=== PATIENT | female | born 1995 | race Caucasian/White ===

== ENCOUNTER 2016-11-01 10:15 | Emergency (ER) | payer OTHER ==
[~2016-11-01] VITALS: Ht 157.5 cm; Wt 65.0 kg
[~2016-11-01 10:15] MED LIST: ACET500C5 PO; AMO500 PO; OMEP20CA9 PO; ONDA4TAB35 PO; RANI150T9 PO
[2016-11-01 10:19] VITALS: Ht 157.5 cm; Wt 65.0 kg
[2016-11-01] MEDS ORDERED: BENZ100C70 PO (11:04)
[2016-11-01] MEDS ORDERED: OSLT75C PO (11:04)
[2016-11-01] MEDS ORDERED: ONDA4TAB14 PO (11:04)
--- NOTE | 2016-11-01 11:12 | ERD ---
ER Documentation Chief Complaint Date/Time DATE: 11/01/16 TIME: 11:08 Chief Complaint flu since thursday HPI Patient is a 21-year-old female who is otherwise healthy complaining of cough, sore throat, earache, nausea, vomiting and generalized body aches and pains for the past 3 days. She admits to fever at home but she took Tylenol and no longer has fever. She has tried [id number] medications which have not helped. ROS All systems reviewed and are negative except as per history of present illness. Medications Home Meds Active Scripts Ondansetron (Ondansetron Odt) 4 Mg Tab.rapdis, 4 MG PO Q6H Y for NAUSEA AND/OR VOMITING, #20 TAB Prov:WIL IRVIN PA-C 11/01/16 Benzonatate* (Tessalon Perle*) 100 Mg Capsule, 100 MG PO Q8H Y for COUGH for 5 Days, CAP Prov:WIL IRVIN PA-C 11/01/16 Oseltamivir Phosphate* (Tamiflu*) 75 Mg Capsule, 75 MG PO BID for 5 Days, CAP Prov:WIL IRVIN PA-C 11/01/16 Acetaminophen* (Tylophen*) 500 Mg Capsule, 1 CAP PO Q6H Y for PAIN AND OR ELEVATED TEMP, #20 CAP Prov:ALEX DAVIES NP 03/06/16 Ranitidine Hcl* (Zantac*) 150 Mg Tablet, 150 MG PO BID Y for EPIGASTRIC PAIN, # 30 TAB Prov:ALEX DAVIES NP 03/06/16 Omeprazole* (Prilosec*) 20 Mg Capsule.dr, 20 MG PO DAILY for 14 Days, CAP Prov:ALEX DAVIES NP 03/06/16 Ondansetron Hcl* (Zofran* ODT) 4 mg -ODT Tab.disper, 4 MG PO Q6 Y for NAUSEA AND /OR VOMITING, #10 TAB Prov:MABEL LIN NP 11/24/15 Ranitidine Hcl* (Zantac*) 150 Mg Tablet, 150 MG PO BID for EPIGASTRIC PAIN, #14 TAB Prov:MABEL LIN NP 11/24/15 Amoxicillin* (Amoxicillin*) 500 Mg Cap, 500 MG PO TID for 7 Days, CAP Prov:JUDIE FUNES DO 10/26/15 Allergies Allergies: Coded Allergies: No Known Drug Allergies (Verified Allergy, Unknown, 10/26/15) PMhx/Soc History of Surgery: No Anesthesia Reaction: No Hx Neurological Disorder: No Hx Respiratory Disorders: No Hx Cardiac Disorders: No Hx Psychiatric Problems: No Hx Miscellaneous Medical Probl: Yes (had problems during her ) Hx Alcohol Use: No Hx Substance Use: No Hx Tobacco Use: No FmHx Family History: No diabetes Physical Exam Vitals Vital Signs Date Time Temp Pulse Resp B/P Pulse Ox O2 Delivery O2 Flow Rate FiO2 11/01/16 10:19 100.0 99 20 116/78 99 Physical Exam General: well developed, well nourished, alert, nontoxic, no distress Head: normocephalic, atraumatic Neck: Supple, nontender, no lymphadenopathy, no midline tenderness Ears: no tenderness over mastoids bilaterally, TMs nonerythematous, no exudates in canal Oropharynx: no tonsilar erythema or edema, uvula midline, no exudates, no kissing tonsils, no drooling Respiratory: Clear to auscaultation bilaterally, speaks in full sentences, no use of accesory muscles or labored breathing, no rales, ronchi, or wheezing Cardiovascular: RRR, No murmurs GI: soft, non tender, non distended, negative murphys sign, negative mcburneys point tenderness, no cva tenderness bilaterally, no rebound or guarding Back: no midline tenderness, no step offs or bony abnormalities, sensation to light touch in tact rapid alternating movements wnl, romberg and pronator drift wnl Procedures/MDM 21-year-old female presents with flulike symptoms. Today's a third day. Low- grade temperature 100.0. Her examination is normal she is well-appearing in no distress. Her lungs are clear. Her GI examination is benign. She is borderline timewise of tamiflu effectivness, however i will still treat her with it as well as Sanam and Marcelle Cash to help her with a cough.Recommended this patient follow up with her primary care doctor within 48 hours or return to the emergency room for any worsening of symptoms. However this time I do believe there is suitable for outpatient management. I answered all their questions and they agreed with the plan and were discharged home. Departure Diagnosis: Primary Impression: Influenza-like symptoms Condition: Stable Patient Instructions: Influenza (Adult) Additional Instructions: Call your primary care doctor TOMORROW for an appointment during the next 1-2 days.See the doctor sooner or return here if your condition worsens before your appointment time. WIL IRVIN PA-C Nov 01, 2016 11:12
[2016-11-01 11:56] VITALS: BP 126/74; PULSE 76; RESP 20; TEMP 99.9
== END 2016-11-01 11:56 | disposition home or self-care (01) ==
LOC: FTE 10:15
DX: J02.9 Acute pharyngitis, unspecified (principal); R11.2 Nausea with vomiting, unspecified; M79.1 Myalgia; H92.09 Otalgia, unspecified ear
CPT/HCPCS: 99284

== ENCOUNTER 2017-08-01 22:37 | Emergency (ER) | payer OTHER ==
[~2017-08-01] VITALS: Ht 162.6 cm; Wt 66.5 kg
[~2017-08-01 22:37] MED LIST changes: -AMO500 PO; +AMOX500C2 PO; +BENZ100C70 PO; +ONDA4TAB14 PO; +OSLT75C PO
[2017-08-01 22:38] VITALS: Ht 162.6 cm; Wt 66.5 kg
[2017-08-01] MEDS ORDERED: ONDANSETRON 4 MG INJ IV STA (22:56)
[2017-08-01] MEDS ORDERED: FAMOTIDINE 20 MG INJ IV STA (22:56)
[2017-08-01] MEDS ORDERED: SOD CHLORIDE 0.9% 1,000 ML IV STA (22:56)
[2017-08-01] MEDS ORDERED: morphine 4 MG/ML VIAL IV STA (22:56)
[2017-08-01 23:49] LABS: ADD UMIC YES; UR ASCORBIC ACID NEGATIVE (NEGATIVE); UR BACTERIA MANY /HPF (NONE SEEN); UR BILIRUBIN (Dip) NEGATIVE (NEGATIVE); UR BLOOD (Dip) NEGATIVE (NEGATIVE); UR CLARITY CLOUDY (CLEAR); UR COLOR YELLOW (YELLOW); UR GLUCOSE (Dip) NEGATIVE (NEGATIVE); UR KETONES (Dip) NEGATIVE (NEGATIVE); UR LEUKOCYTE ESTERASE (Dip) 1+ Leu/ul (NEGATIVE); UR MUCUS FEW /HPF (NONE SEEN); UR NITRITE (Dip) POSITIVE (NEGATIVE); UR RBC 0 /HPF (0-5); UR SQUAMOUS EPITHELIAL CELL FEW /HPF (FEW); UR TOTAL PROTEIN (Dip) NEGATIVE (NEGATIVE); UR UROBILINOGEN (Dip) NEGATIVE (NEGATIVE)
--- NOTE | 2017-08-01 23:52 | ERD ---
ER Documentation Chief Complaint Date/Time DATE: 08/01/17 TIME: 23:49 Chief Complaint vomiting w/ headache since this morning HPI This is a 22-year-old female presenting to emergency department with abdominal pain, vomiting and headache 2 days. Patient states she feels like it is her "gallbladder pain." Patient states she has a history of gallstones. Patient had 4 episodes of nonbloody nonbilious emesis today. No diarrhea. No lower abdominal pain. No dysuria or hematuria. No urinary frequency or urgency. Patient states she has similar pain intermittently in the last couple of months and usually takes Prilosec and apple juice with relief of pain. Patient took Prilosec earlier today without relief of symptoms. Patient's last menstrual period about 5 weeks ago. ROS All systems reviewed and are negative except as per history of present illness. Medications Home Meds Active Scripts Ciprofloxacin Hcl* (Ciprofloxacin Hcl*) 500 Mg Tablet, 500 MG PO BID for 7 Days , TAB Prov:CHELITA ACEVEDO PA-C 08/02/17 Hydrocodone/Acetaminophen ([place] 5-325 Tablet) 1 Each Tablet, 1 TAB PO Q6H Y for PAIN, #7 TAB Prov:CHELITA ACEVEDO PA-C 08/02/17 Ondansetron (Ondansetron Odt) 4 Mg Tab.rapdis, 4 MG PO Q6H Y for NAUSEA AND/OR VOMITING, #20 TAB Prov:WIL IRVIN PA-C 11/01/16 Benzonatate* (Tessalon Perle*) 100 Mg Capsule, 100 MG PO Q8H Y for COUGH for 5 Days, CAP Prov:WIL IRVIN PA-C 11/01/16 Oseltamivir Phosphate* (Tamiflu*) 75 Mg Capsule, 75 MG PO BID for 5 Days, CAP Prov:WIL IRVIN PA-C 11/01/16 Acetaminophen* (Tylophen*) 500 Mg Capsule, 1 CAP PO Q6H Y for PAIN AND OR ELEVATED TEMP, #20 CAP Prov:ALEX DAVIES NP 03/06/16 Ranitidine Hcl* (Zantac*) 150 Mg Tablet, 150 MG PO BID Y for EPIGASTRIC PAIN, # 30 TAB Prov:ALEX DAVIES NP 03/06/16 Omeprazole* (Prilosec*) 20 Mg Capsule.dr, 20 MG PO DAILY for 14 Days, CAP Prov:ALEX DAVIES. CARBON CLEANER 03/06/16 Ondansetron Hcl* (Zofran* ODT) 4 mg -ODT Tab.disper, 4 MG PO Q6 Y for NAUSEA AND /OR VOMITING, #10 TAB Prov:LINMABEL I. CARB[employer] CLEANER 11/24/15 Ranitidine Hcl* (Zantac*) 150 Mg Tablet, 150 MG PO BID for EPIGASTRIC PAIN, #14 TAB Prov:LINMABEL I. CARB[employer] CLEANER 11/24/15 Amoxicillin* (Amoxicillin*) 500 Mg Cap, 500 MG PO TID for 7 Days, CAP Prov:MARINAJMOODY DO 10/26/15 Allergies Allergies: Coded Allergies: No Known Drug Allergies (Verified Allergy, Unknown, 10/26/15) PMhx/Soc Medical and Surgical Hx: pt denies Surgical Hx History of Surgery: No Anesthesia Reaction: No Hx Neurological Disorder: No Hx Respiratory Disorders: No Hx Cardiac Disorders: No Hx Psychiatric Problems: No Hx Miscellaneous Medical Probl: Yes (Gallstones) Hx Alcohol Use: No Hx Substance Use: No Hx Tobacco Use: No Smoking Status: Never smoker Physical Exam Vitals Vital Signs Date Time Temp Pulse Resp B/P Pulse Ox O2 Delivery O2 Flow Rate FiO2 08/02/17 03:21 98.6 68 16 122/68 100 08/01/17 22:38 98.6 92 20 130/83 100 Physical Exam Const: No acute distress, alert Head: Atraumatic Eyes: Normal Conjunctiva ENT: Normal External Ears, Nose and Mouth. Neck: Full range of motion..~ No meningismus. Resp: Clear to auscultation bilaterally Cardio: Regular rate and rhythm, no murmurs Abd: Soft, non distended. Normal bowel sounds. Negative McBurney point tenderness. Negative Holm sign. Tenderness to right upper and lower quadrant. No rebound tenderness. Skin: No petechiae or rashes Back: No midline or flank tenderness Ext: No cyanosis, or edema Neur: Awake and alert Psych: Normal Mood and Affect Result Diagram: 08/01/17 7507 08/01/17 5487 Results 24 hrs Laboratory Tests Test 08/01/17 23:18 08/01/17 23:53 Urine Color YELLOW Urine Clarity CLOUDY Urine pH 7.0 Urine Specific Wallace 1.010 Urine Ketones NEGATIVEmg/dL Urine Nitrite POSITIVEmg/dL Urine Bilirubin NEGATIVEmg/dL Urine Urobilinogen NEGATIVEmg/dL Urine Leukocyte Esterase 1+Mare/ul Urine Microscopic RBC 0/HPF Urine Microscopic WBC 10/HPF Urine Squamous Epithelial Cells FEW/HPF Urine Bacteria MANY/HPF Urine Mucus FEW/HPF Urine Hemoglobin NEGATIVEmg/dL Urine Glucose NEGATIVEmg/dL Urine Total Protein NEGATIVEmg/dl White Blood Count 8.910^3/ul Red Blood Count 4.3710^6/ul Hemoglobin 13.4g/dl Hematocrit 38.9% Mean Corpuscular Volume 89.0fl Mean Corpuscular Hemoglobin 30.7pg Mean Corpuscular Hemoglobin Concent 34.4g/dl Red Cell Distribution Width 11.9% Platelet Count 24189^3/UL Mean Platelet Volume 9.5fl Neutrophils % 59.2% Lymphocytes % 30.1% Monocytes % 6.6% Eosinophils % 3.5% Basophils % 0.4% Nucleated Red Blood Cells % 0.0/100WBC Neutrophils # 5.310^3/ul Lymphocytes # 2.710^3/ul Monocytes # 0.610^3/ul Eosinophils # 0.310^3/ul Basophils # 0.010^3/ul Nucleated Red Blood Cells # 0.010^3/ul Sodium Level 143mmol/L Potassium Level 3.6mmol/L Chloride Level 101mmol/L Carbon Dioxide Level 29mmol/L Anion Gap 17 Blood Urea Nitrogen 8mg/dl Creatinine 0.70mg/dl Glucose Level 84mg/dl Calcium Level 9.8mg/dl Total Bilirubin 0.2mg/dl Direct Bilirubin 0.00mg/dl Indirect Bilirubin 0.2mg/dl Aspartate Amino Transf (AST/SGOT) 41IU/L Alanine Aminotransferase (ALT/SGPT) 85IU/L Alkaline Phosphatase 99IU/L Total Protein 7.9g/dl Albumin 4.5g/dl Globulin 3.40g/dl Albumin/Globulin Ratio 1.32 Lipase 108U/L Current Medications Medications (Trade) Dose Ordered Sig/Jacklyn Route PRN Reason Start Time Stop Time Status Last Admin Dose Admin Sodium Chloride (NS) 1,000 ml @ 1,000 mls/hr Q1H STAT IV 08/01/17 22:56 08/01/17 23:55 DC 08/01/17 22:56 Morphine Sulfate (morphine) 4 mg ONCE STAT IV 08/01/17 22:56 08/01/17 22:58 DC 08/01/17 23:56 Ondansetron HCl (Zofran Inj) 4 mg ONCE STAT IV 08/01/17 22:56 08/01/17 22:58 DC 08/01/17 22:56 Famotidine (Pepcid Iv) 20 mg ONCE STAT IV 08/01/17 22:56 08/01/17 22:58 DC 08/01/17 22:56 Morphine Sulfate (morphine) 2 mg ONCE ONCE IV 08/02/17 01:30 08/02/17 01:31 DC 08/02/17 01:28 Procedures/MDM MDM: This is a 22-year-old female presenting to emerge department with right upper quadrant abdominal pain, vomiting and headache 2 days. Patient is afebrile upon arrival to ED and vital signs are stable. Patient is having significant right upper quadrant abdominal pain rating pain 8/10 and states pain feels sharp. Pain is radiating to right flank. Labs and urine ordered. A bladder ultrasound and CT abdomen and pelvis ordered. IV access obtained and patient given 1 L IV fluid bolus. Patient also given morphine 4 mg IV, Pepcid 20 mg IV and Zofran 4 mg IV. Patient signed out to Penelope Acevedo pending labs, urine, ultrasound and CT results. Departure Diagnosis: Primary Impression: Cholelithiasis Condition: Stable NARESH GROVES NP Aug 01, 2017 23:52
[2017-08-02 00:17] LABS: BASOPHILS % 0.4 % (0.0-2.0); EOSINOPHILS # 0.3 10^3/ul (0.0-0.5); EOSINOPHILS % 3.5 % (0.0-7.0); HEMATOCRIT 38.9 % (37.0-47.0); HEMOGLOBIN 13.4 g/dl (12.0-16.0); LYMPHOCYTES # 2.7 10^3/ul (0.8-2.9); LYMPHOCYTES % 30.1 % (15.0-51.0); MEAN CORPUSCULAR HEMOGLOBIN 30.7 pg (29.0-33.0); MEAN CORPUSCULAR HGB CONC 34.4 g/dl (32.0-37.0); MEAN PLATELET VOLUME 9.5 fl (7.4-10.4); MONOCYTE # 0.6 10^3/ul (0.3-0.9); MONOCYTES % 6.6 % (0.0-11.0); NEUTROPHIL # 5.3 10^3/ul (1.6-7.5); NEUTROPHILS % 59.2 % (39.0-77.0); PLATELET COUNT 370 10^3/UL (140-415); RED BLOOD COUNT 4.37 10^6/ul (4.20-5.40); RED CELL DISTRIBUTION WIDTH 11.9 % (11.5-14.5); WHITE BLOOD COUNT 8.9 10^3/ul (4.8-10.8)
[2017-08-02 00:36] LABS: ALBUMIN 4.5 g/dl (3.3-4.9); ALBUMIN/GLOBULIN RATIO 1.32; BILIRUBIN,INDIRECT 0.2 mg/dl (0-1.1); BILIRUBIN,TOTAL 0.2 mg/dl (0.2-1.3); CALCIUM 9.8 mg/dl (8.4-10.2); CREATININE 0.7 mg/dl (0.44-1.00); POTASSIUM 3.6 mmol/L (3.5-5.1); TOTAL PROTEIN 7.9 g/dl (6.1-8.1)
--- NOTE | 2017-08-02 01:18 | RADRPT ---
PROCEDURE: CT ABDOMEN AND PELVIS WITHOUT CONTRAST CLINICAL INDICATION: 22 years of age, female . Abdominal pain. TECHNIQUE: CT of the abdomen and pelvis was performed without intravenous contrast. Oral contrast wa s not administered prior to the examination. Coronal and sagittal reformatted images were obtained from the axial source images. Images were revi ewed on a high-resolution PACS workstation. Dose information: Based on a 32 cm phantom, the estimated radiation dose (CTDIvol mGy) for each seri es in this exam is 7.5. The estimated cumulative dose (DLP mGy-cm) is 425. One or more of the following dose reduction techniques were used: - Automated exposure control. - Adjustment of the mA and/or kV according to patient size. - Use of iterative reconstruction technique. COMPARISON: Right upper quadrant ultrasound from the same day FINDINGS: In the absence of intravenous contrast, the study constitutes a limited assessment of the solid orga ns, bowel and vessels. LUNG BASES: Normal noncontrast appearance. ABDOMEN/PELVIS: Liver: Severe hepatic steatosis. Liver is normal size and measures 16.7 cm in length. Gallbladder: There are multiple rim calcified stones occupying the gallbladder lumen. Individual sto calvin measure up to 1.9 cm. Negative for abnormal gallbladder wall thickening. Negative for edema in t he pericholecystic fat. Bile ducts: No intrahepatic or extrahepatic biliary duct dilatation. Spleen: Normal noncontrast appearance. Pancreas: Normal noncontrast appearance. Adrenal glands: Normal noncontrast appearance. Kidneys and ureters: Punctate 0.1 cm calculus lower pole right kidney. Negative for ureteral calculi or hydronephrosis. Kidneys are normal size. Aorta and IVC: Normal noncontrast appearance. Lymph nodes: Small lymph nodes in gastrohepatic ligament and ayana hepatis are likely reactive. Gastrointestinal tract: Normal noncontrast appearance. Appendix: Normal Bladder: Normal noncontrast appearance. Pelvic Organs: The uterus and adnexa are unremarkable. Peritoneal cavity: No free fluid or free intraperitoneal air. Abdominal wall: Normal noncontrast appearance. BONES: Musculoskeletal: No suspicious bone lesions. IMPRESSION: 1. Severe hepatic steatosis without hepatomegaly. Recommend correlation with liver tests to evaluate for potential steatohepatitis. 2. Cholelithiasis without evidence of acute cholecystitis or biliary obstruction. RPTAT: HCTS Angela Gonzalez, Physician Date Time Electronically viewed and signed by Angela Gonzalez, Physician on 08/02/2017 01:18 CS/
[2017-08-02] MEDS ORDERED: morphine 2 MG INJ IV ONE (01:30)
[2017-08-02] MEDS ORDERED: CIPR500T4 PO (02:35)
[2017-08-02] MEDS ORDERED: HYDR-906 PO (02:35)
[2017-08-02 03:21] VITALS: BP 122/68; PULSE 68; RESP 16; TEMP 98.6
[2017-08-03] MEDS ORDERED: ONDA4TAB8 PO (03:26)
[2017-08-03] MEDS ORDERED: TRAM50TA2 PO (03:26)
[2017-08-03] MEDS ORDERED: NAPR-688 PO (03:26)
== END 2017-08-02 03:23 | disposition home or self-care (01) ==
LOC: FTE 22:37
DX: K80.20 Calculus of gallbladder without cholecystitis without obstruction (principal)
CPT/HCPCS: 36415; 74176; 76705; 80053; 81001; 83690; 85025; 96374; 96375; 96376; J2270; J2405; J7030; Z7502; Z7610

== ENCOUNTER 2017-08-02 23:38 | Emergency (ER) | payer OTHER ==
[~2017-08-02] VITALS: Ht 165.1 cm; Wt 66.0 kg
[~2017-08-02 23:38] MED LIST changes: +CIPR500T4 PO; +HYDR-906 PO
[2017-08-02 23:42] VITALS: Ht 165.1 cm; Wt 66.0 kg
[2017-08-03] MEDS ORDERED: KETOROLAC 60 MG INJ IM STA (00:30)
[2017-08-03] MEDS ORDERED: ONDANSETRON 4 MG INJ IV STA (00:46)
[2017-08-03] MEDS ORDERED: ONDANSETRON 4 MG INJ IM STA (00:48)
--- NOTE | 2017-08-03 00:48 | ERD ---
ER Documentation Chief Complaint Date/Time DATE: 08/03/17 TIME: 00:43 Chief Complaint abd pain x4 days. Seen in ED yesterday dx w/gallstones. "Meds not working" HPI 22-year-old female presents for the same right upper quadrant pain rating to the back described as a pain like pain sensation is at the same pain that she had yesterday. Yesterday she was discharged discharge with ciprofloxacin and Revillo. She took a Revillo this evening and it did not take away the pain. She also has some nausea. ROS All systems reviewed and are negative except as per history of present illness. Medications Home Meds Active Scripts Ondansetron Hcl* (Zofran*) 4 Mg Tablet, 4 MG PO Q6H for NAUSEA AND/OR VOMITING, #30 TAB Prov:KAILA LEE DO 08/03/17 Naproxen* (Naproxen*) 500 Mg Tablet, 500 MG PO BID Y for PAIN, #20 TAB Prov:KAILA LEE DO 08/03/17 Tramadol HCl (Tramadol HCl) 50 Mg Tablet, 50 MG PO Q4 Y for PAIN, #20 TAB Prov:JESUSKAILA DO 08/03/17 Ciprofloxacin Hcl* (Ciprofloxacin Hcl*) 500 Mg Tablet, 500 MG PO BID for 7 Days , TAB Prov:CHELITA ACEVEDO PA-C 08/02/17 Hydrocodone/Acetaminophen ([place] 5-325 Tablet) 1 Each Tablet, 1 TAB PO Q6H Y for PAIN, #7 TAB Prov:CHELITA ACEVEDO PA-C 08/02/17 Ondansetron (Ondansetron Odt) 4 Mg Tab.rapdis, 4 MG PO Q6H Y for NAUSEA AND/OR VOMITING, #20 TAB Prov:WIL IRVIN PA-C 11/01/16 Benzonatate* (Tessalon Perle*) 100 Mg Capsule, 100 MG PO Q8H Y for COUGH for 5 Days, CAP Prov:WIL IRVIN PA-C 11/01/16 Oseltamivir Phosphate* (Tamiflu*) 75 Mg Capsule, 75 MG PO BID for 5 Days, CAP Prov:WIL IRVIN PA-C 11/01/16 Acetaminophen* (Tylophen*) 500 Mg Capsule, 1 CAP PO Q6H Y for PAIN AND OR ELEVATED TEMP, #20 CAP Prov:KEKEALEX Apolinar. PROTOCOL MANAGER 03/06/16 Ranitidine Hcl* (Zantac*) 150 Mg Tablet, 150 MG PO BID Y for EPIGASTRIC PAIN, # 30 TAB Prov:KEKEALEX Apolinar. PROTOCOL MANAGER 03/06/16 Omeprazole* (Prilosec*) 20 Mg Capsule.dr, 20 MG PO DAILY for 14 Days, CAP Prov:KEKEALEX Apolinar. PROTOCOL MANAGER 03/06/16 Ondansetron Hcl* (Zofran* ODT) 4 mg -ODT Tab.disper, 4 MG PO Q6 Y for NAUSEA AND /OR VOMITING, #10 TAB Prov:LINMABEL SOTELO I. PROTOCOL MANAGER 11/24/15 Ranitidine Hcl* (Zantac*) 150 Mg Tablet, 150 MG PO BID for EPIGASTRIC PAIN, #14 TAB Prov:MABEL LIN I. PROTOCOL MANAGER 11/24/15 Amoxicillin* (Amoxicillin*) 500 Mg Cap, 500 MG PO TID for 7 Days, CAP Prov:JUDIE FUNES DO 10/26/15 Allergies Allergies: Coded Allergies: No Known Drug Allergies (Verified Allergy, Unknown, 08/02/17) PMhx/Soc History of Surgery: No Anesthesia Reaction: No Hx Neurological Disorder: No Hx Respiratory Disorders: No Hx Cardiac Disorders: No Hx Psychiatric Problems: No Hx Miscellaneous Medical Probl: Yes (Gallstones) Hx Alcohol Use: No Hx Substance Use: No Hx Tobacco Use: No Physical Exam Vitals Vital Signs Date Time Temp Pulse Resp B/P Pulse Ox O2 Delivery O2 Flow Rate FiO2 08/02/17 23:42 97.8 76 18 123/65 99 Physical Exam Const: [] Mild distress Head: Atraumatic Eyes: Normal Conjunctiva ENT: Normal External Ears, Nose and Mouth. Neck: Full range of motion..~ No meningismus. Resp: Clear to auscultation bilaterally Cardio: Regular rate and rhythm, no murmurs Abd: Soft, right upper quadrant pain without guarding or rebound., non distended. Normal bowel sounds Skin: No petechiae or rashes Back: No midline or flank tenderness Ext: No cyanosis, or edema Neur: Awake and alert Psych: Normal Mood and Affect Results 24 hrs Current Medications Medications (Trade) Dose Ordered Sig/Jacklyn Route PRN Reason Start Time Stop Time Status Last Admin Dose Admin Ketorolac Tromethamine (Toradol) 60 mg ONCE STAT IM 08/03/17 00:30 08/03/17 00:31 DC 08/03/17 01:00 Ondansetron HCl (Zofran Inj) 4 mg ONCE STAT IV 08/03/17 00:46 08/03/17 00:49 DC Ondansetron HCl (Zofran Inj) 4 mg ONCE STAT IM 08/03/17 00:48 08/03/17 00:49 DC 08/03/17 01:00 Ondansetron HCl (Zofran Inj) 4 mg STK-MED ONCE .ROUTE 08/03/17 00:49 08/03/17 00:50 DC Acetaminophen/ Hydrocodone Bitart ([place] (10/325)) 1 tab ONCE ONCE PO 08/03/17 01:00 08/03/17 01:01 DC 08/03/17 01:00 Procedures/MDM Biliary colic. Patient was given Toradol injection and Revillo in the emergency room which did decrease her pain. She was also given Zofran injection. Ultrasound was performed which shows no signs of acute cholecystitis. I am going to discharge her with both naproxen and tramadol as well as Zofran. Is Thursday and we discussed calling her primary care doctor for referral to a general surgeon today when the office opens. Right upper quadrant ultrasound interpretation: Fatty liver, gallstones, no wall thickening, pericystic colic fluid, ductal dilation. Departure Diagnosis: Primary Impression: Biliary colic Condition: Stable KAILA LEE DO Aug 03, 2017 00:47
[2017-08-03] MEDS ORDERED: ONDANSETRON 4 MG INJ ONE (00:49)
[2017-08-03] MEDS ORDERED: HYDROCODONE/APAP (10/325) TAB PO ONE (01:00)
--- NOTE | 2017-08-03 01:29 | RADRPT ---
PROCEDURE: LIMITED ABDOMINAL ULTRASOUND OF GALL BLADDER CLINICAL INDICATION: 22 years of age, female. Abdominal pain. TECHNIQUE: Multiple real-time longitudinal and transverse images of the gallbladder and the bile d ucts were acquired utilizing a curved array transducer. Images were reviewed on a high-resolution [facility] workstation. COMPARISON: CT abdomen pelvis August 02, 2017 FINDINGS: Pancreas: Not well visualized due to bowel gas. Liver appearance: Echogenic in keeping with moderate steatosis. There is attenuation of the sonograp hic beam. Liver length: 14.4 cm Bile Ducts: No intrahepatic or extrahepatic biliary ductal dilatation. CBD: 0.3 cm. Gallbladder: There are multiple shadowing stones filling the gallbladder lumen. Gallbladder wall karen sures at the upper limits of normal at 3 mm. [employer] Manager reports point tenderness over the gallbladd er. Main portal vein is patent with hepatopetal flow. Right kidney length: 11.1 cm. Right kidney appearance: 0.4 cm nonobstructing calculus lower pole corresponds to a tiny calculus se en on CT. Normal parenchymal appearance. Negative for hydronephrosis. Other: None. IMPRESSION: 1. Cholelithiasis. Gallbladder wall measures at the upper limits of normal without pericholecystic f luid. However, administrative staff supervisor reports point tenderness over the gallbladder. Recommend correlation with labs and clinical exam to evaluate for potential acute cholecystitis. 2. Hepatic steatosis without hepatomegaly. Recommend correlation with liver tests to evaluate for po tential steatohepatitis. 3. Nonobstructing right renal calculus. RPTAT: HCTS Physician Ld Date Time Electronically viewed and signed by Physician Ld on 08/03/2017 01:29 /
[2017-08-03] MEDS ORDERED: TRAM50TA2 PO (03:26)
[2017-08-03] MEDS ORDERED: ONDA4TAB8 PO (03:26)
[2017-08-03] MEDS ORDERED: NAPR-688 PO (03:26)
[2017-08-03 04:02] VITALS: BP 120/83; PULSE 93; RESP 16
== END 2017-08-03 04:03 | disposition home or self-care (01) ==
LOC: E/R 23:38
DX: K80.50 Calculus of bile duct without cholangitis or cholecystitis without obstruction (principal)
CPT/HCPCS: 76705; 96372; J1885; J2405; Z7502; Z7610

== ENCOUNTER 2017-10-19 10:31 | Emergency (ER) | END 2017-10-19 14:24 | disposition home or self-care (01) ==

== ENCOUNTER 2018-01-29 20:41 | Emergency (ER) | END 2018-01-30 00:20 | disposition home or self-care (01) ==

== ENCOUNTER 2018-04-01 01:41 | Emergency (ER) | END 2018-04-01 06:10 | disposition home or self-care (01) ==

== ENCOUNTER 2018-07-09 19:34 | Emergency (ER) | END 2018-07-10 02:28 | disposition home or self-care (01) ==

== ENCOUNTER 2018-09-23 00:46 | Emergency (ER) | END 2018-09-23 03:05 | disposition home or self-care (01) ==

== ENCOUNTER 2018-12-04 16:57 | Emergency (ER) | payer SELFPAY ==
[~2018-12-04] VITALS: Ht 157.5 cm; Wt 58.9 kg
[~2018-12-04 16:57] MED LIST changes: -AMOX500C2 PO; -BENZ100C70 PO; +CEPH-443 PO; +DICY10CA40 PO; +FLUT9.9S NASAL; +GUAI5SYR2 PO; +HYDR-4011 PO; -HYDR-906 PO; +IBUP-1542 PO; +LORA10TA3 PO; +METR500T PO; +NAPH15DR69 BOTH EYES; -OSLT75C PO; +RANI150T35 PO; -RANI150T9 PO; +TRAM50TA2 PO
[2018-12-04 17:04] VITALS: BP 104/61; PULSE 98; RESP 18; Ht 157.5 cm; Wt 58.9 kg
== END 2018-12-04 19:10 | disposition left against medical advice (07) ==
LOC: FTE 16:57
DX: Z53.21 Procedure and treatment not carried out due to patient leaving prior to being seen by health care provider (principal)

== ENCOUNTER 2018-12-07 00:22 | Emergency (ER) | payer SELFPAY ==
[~2018-12-07] VITALS: Ht 157.5 cm; Wt 61.0 kg
[2018-12-07 00:31] VITALS: Ht 157.5 cm; Wt 61.0 kg
== END 2018-12-07 04:32 | disposition left against medical advice (07) ==
LOC: FTE 00:22
DX: Z53.21 Procedure and treatment not carried out due to patient leaving prior to being seen by health care provider (principal)

== ENCOUNTER 2018-12-18 00:41 | Outpatient (CLI) | payer OTHER ==
[~2018-12-18] VITALS: Ht 157.5 cm; Wt 60.9 kg
[2018-12-18 01:15] VITALS: BP 119/70; PULSE 103; RESP 20
[2018-12-18] MEDS ORDERED: PREN-19 PO (01:23)
[2018-12-18] MEDS ORDERED: FERR134T PO (01:23)
[2018-12-18] MEDS ORDERED: LACTATED RINGER'S 1,000 ML IV SCH (02:00)
--- NOTE | 2018-12-18 08:36 | PN ---
Triage Information Date/Time Reason for visit: Abd/pelvic pain Weeks of Gestation 21-week at 5 days /Para Diabetes: none Hypertention: none Objective Vital Signs Date Temp Pulse Resp B/P (MAP) Pulse Ox O2 O2 Flow FiO2 Time Delivery Rate 12/18/18 97.9 103 20 119/70 Room Air 01:15 (86) Intake and Output 12/17/18 12/17/18 12/18/18 1515:00 23:00 07:00 IntakeIntake Total 1000 ml BalanceBalance 1000 ml Heart Rate: 140's Contractions: None Results/Medications Result Diagram: 12/18/18 0132 12/18/18 0132 Results 24 hrs Laboratory Tests Test 12/18/18 00:30 12/18/18 01:32 Urine Color YELLOW Urine Clarity CLEAR Urine pH 7.0 Urine Specific [place] 1.011 Urine Ketones NEGATIVE Urine Nitrite NEGATIVE Urine Bilirubin NEGATIVE Urine Urobilinogen NEGATIVE Urine Leukocyte Esterase NEGATIVE Urine Hemoglobin NEGATIVE Urine Glucose NEGATIVE Urine Total Protein NEGATIVE White Blood Count 12.8 #H Red Blood Count 3.87 L Hemoglobin 11.7 L Hematocrit 34.6 L Mean Corpuscular Volume 89.4 Mean Corpuscular Hemoglobin 30.2 Mean Corpuscular Hemoglobin Concent 33.8 Red Cell Distribution Width 12.7 Platelet Count 297 Mean Platelet Volume 9.0 Immature Granulocytes % 0.500 H Neutrophils % 83.9 H Lymphocytes % 10.9 L Monocytes % 3.8 Eosinophils % 0.7 Basophils % 0.2 Nucleated Red Blood Cells % 0.0 Immature Granulocytes # 0.060 H Neutrophils # 10.7 H Lymphocytes # 1.4 Monocytes # 0.5 Eosinophils # 0.1 Basophils # 0.0 Nucleated Red Blood Cells # 0.0 Sodium Level 142 Potassium Level 3.9 Chloride Level 110 Carbon Dioxide Level 22 Anion Gap 10 Blood Urea Nitrogen 5 L Creatinine 0.48 Est Glomerular Filtrat Rate mL/min > 60 Glucose Level 78 Uric Acid 4.1 Calcium Level 8.8 Total Bilirubin 0.2 Direct Bilirubin 0.00 Indirect Bilirubin 0.2 Aspartate Amino Transf (AST/SGOT) 21 Alanine Aminotransferase (ALT/SGPT) 19 Alkaline Phosphatase 134 H Total Protein 7.2 Albumin 3.9 Globulin 3.30 H Albumin/Globulin Ratio 1.18 Amylase Level 98 Lipase 95 Medications Current Medications Lactated Ringer's 1,000 ml @ 150 mls/hr [id number] IV Last administered on 12/18/18at 01:48; Admin Dose 150 MLS/HR; Start 12/18/18 at 02:00 Imaging Results The study is somewhat limited by difficulty with breath holding. The placenta is posterior. No evidence for abruption or previa. A single intrauterine gestation is seen. No gross anatomic abnormality. Position of the fetus is vertex. Small lower uterine segment fibroid versus contraction. The appendix is again noted to be retrocecal and measures 6.7 mm in diameter. No adjacent inflammatory change. No gross abnormality of the liver, spleen, adrenals, left kidney, or pancreas. There is mild right renal pelvocaliectasis and slight ureterectasis, consistent with compression by the gravid uterus. Unremarkable urinary bladder. No abnormality of either adnexa is seen. Unremarkable ovaries. No free fluid is seen in the abdomen or in the pelvis. The cervix is closed and measures 4.8 cm in length. Small Nabothian cysts are incidentally noted. No gross abnormality of the bowel in the abdomen or pelvis is seen. No adenopathy is seen. The gallbladder is contracted or surgically absent. No biliary ductal dilatation. IMPRESSION: Mild right pelvicaliectasis likely due to uterine compression. Probable small uterine fibroid. Normal appendix. No definite acute abnormality of the abdomen or pelvis. No gross abnormality of the fetus or placenta.. Disposition: Discharge Assessment/Plan 23 ye by Ars old with single intrauterine at 21 weeks and 5 days complaining of abdominal and pelvic pain. She had multiple ER admission for same issues. She states good movement. She denies nausea, vomiting, shortness of breath, chest pain, headache, visual changes, vaginal bleeding or LOF. heart rate is category 1. She has no uterine contraction. Her exam was unremarkable. As she had multiple ER admission for same reason MRI of abdomen ordered which was within normal limits except small uterine fibroid. L abs within normal limits as noted above. Patient reassured. Symptoms and sign of labor, preeclampsia, kick count discussed with patient, she voiced understanding. All of her questions answered. Patient was discharged home in stable condition with the appropriate discharge instructions provided. I would like patient to have close follow-up with her primary physician or outpatient clinic in 1-2 days or return to triage for worsening symptoms or any other urgent concerns. CLAUDIA AKHTAR Dec 18, 2018 08:36
== END 2018-12-18 07:10 | disposition home or self-care (01) ==
LOC: OBT 00:41 → L-D 00:43 → OBT 07:10
PROVIDERS: ATTEND Obstetrics & Gynecology
DX: O26.892 Other specified pregnancy related conditions, second trimester (principal); R10.2 Pelvic and perineal pain; Z3A.21 21 weeks gestation of pregnancy
CPT/HCPCS: 72195; 74181; 76815; 76817; 80053; 81003; 82150; 83690; 84560; 85025; 87086; J7120; Z7500; G0463

== ENCOUNTER 2019-03-24 21:24 | Outpatient (CLI) | payer OTHER ==
[~2019-03-24 21:24] MED LIST changes: -ACET500C5 PO; -CEPH-443 PO; -CIPR500T4 PO; -DICY10CA40 PO; +FERR134T PO; -FLUT9.9S NASAL; -GUAI5SYR2 PO; -IBUP-1542 PO; -LORA10TA3 PO; -METR500T PO; -NAPH15DR69 BOTH EYES; -OMEP20CA9 PO; -ONDA4TAB14 PO; -ONDA4TAB35 PO; +PREN-19 PO; -RANI150T35 PO
[2019-03-25] MEDS ORDERED: ACETAMINOPHEN 1000MG/100ML IV 100 ML IVPB ONE (00:30)
--- NOTE | 2019-03-25 03:25 | TRIAGE ---
OB Triage Datetime Report Generated by CPN: 03/25/2019 03:25 Datetime: 03/25/2019 02:55 Pain Assessment Pain Scale: 4 Pain Presence: Intermittent Pain Type: Dull Pain Location: Abdomen Pain Assessment Comments: Pt states the pain is still there but pt able to sleep. Datetime: 03/25/2019 02:15 Pain Assessment Pain Scale: 4 Pain Presence: Constant Pain Type: Dull Pain Location: Abdomen Datetime: 03/24/2019 23:50 Labor Evaluation Frequency: X1 Monitor Mode: External Duration (sec)2399: 70 Quality: Mild Pattern: Normal: <= 5 Contractions in 10 Minutes Resting Tone [place]: Relaxed Heart Rate FHR Baseline Rate: 135 Monitor Mode: External US FHR Baseline Changes: No Baseline Change Variability: Moderate 6-25 bpm Accelerations: 15X15 Decelerations: Variable Category: Category II Datetime: 03/24/2019 22:50 Labor Evaluation Frequency: OCCASIONAL Monitor Mode: External Quality: Mild Pattern: Normal: <= 5 Contractions in 10 Minutes Resting Tone [place]: Relaxed Heart Rate FHR Baseline Rate: 120 Monitor Mode: External US FHR Baseline Changes: No Baseline Change Variability: Moderate 6-25 bpm Accelerations: 15X15 Decelerations: None Category: Category I Datetime: 03/24/2019 21:56 Vaginal Exam Membrane Status: Intact Datetime: 03/24/2019 21:53 Time of Arrival: 03/24/2019 21:19 EGA: 35.3 Arrived By: Ambulance Arrived From: Home Movement: Present Contractions: Denies/Absent Rupture of Membranes: Denies Vaginal Bleeding: None Vaginal Discharge: Denies Recent Sexual Intercouse: Denies Abdominal Trauma: Not Applicable Patient Complaints: Back Pain Time Provider Notified: 03/24/2019 22:00 Provider Notified: Initial Plan: EFM, CBC, ULTRASOUND Datetime: 03/24/2019 21:52 Stage of : OB Triage Maternal Assessment Level of Consciousness: Fully Conscious DTR's/Clonus: DTRs 2+; No Clonus Headache: Denies Blurred Vision: No Respiratory Effort: Unlabored; Regular Rhythm; Equal Expansion Breath Sounds, Left: Clear and Equal Breath Sounds, Right: Clear and Equal Nausea/Vomiting: Denies RUQ Epigastric Pain: Denies Facial Edema: None Temperature Route: Axillary Fall Risk Assessment History of Falling: (0) No Secondary Diagnosis: (0) No Ambulatory Aid: (0) Bedrest/Nurse Assist IV Therapy: (0) No Gait: (0) Normal/Bedrest/Immobile Mental Status: (0) Oriented to Own Ability Fall Score: 0 Fall Risk Score Definition: No Risk: No action required Datetime: 03/24/2019 21:49 Labor Evaluation Frequency: IRREGULAR Monitor Mode: External Quality: Mild Pattern: Normal: <= 5 Contractions in 10 Minutes Resting Tone [place]: Relaxed Heart Rate FHR Baseline Rate: 135 Monitor Mode: External US FHR Baseline Changes: No Baseline Change Variability: Moderate 6-25 bpm Accelerations: 15X15 Decelerations: None Category: Category I Datetime: 12/18/2018 06:56 Stage of : OB Triage Datetime: 12/18/2018 06:25 Stage of : OB Triage Datetime: 12/18/2018 05:44 Stage of : OB Triage Monitor Mode: External Quality: Mild Resting Tone [place]: Relaxed Pain Assessment Pain Scale: 5 Pain Presence: Intermittent Pain Type: Cramping Pain Location: Abdomen Datetime: 12/18/2018 04:00 Stage of : OB Triage Datetime: 12/18/2018 02:21 Stage of : OB Triage Monitor Mode: External Quality: Mild Resting Tone [place]: Relaxed Datetime: 12/18/2018 01:47 Monitor Mode: External Quality: Mild Pattern: Normal: <= 5 Contractions in 10 Minutes Resting Tone [place]: Relaxed Datetime: 12/18/2018 01:27 Stage of : OB Triage Heart Rate FHR Baseline Rate: 150 Monitor Mode: External US Pain Assessment Pain Scale: 8 Pain Presence: Constant Pain Type: Sharp; Stabbing Pain Location: Abdomen; Back Datetime: 12/18/2018 00:49 EGA: 21.5 Datetime: 12/18/2018 00:45 Stage of : OB Triage Monitor Mode: External Resting Tone [place]: Relaxed Heart Rate FHR Baseline Rate: 150 Monitor Mode: External US Datetime: 12/18/2018 00:30 Stage of : OB Triage Time of Arrival: 12/18/2018 00:22 Arrived By: Wheelchair Arrived From: Home Chief Complaint: c/o severe 10/10pain rt side, rt lower abd and radiating to back Movement: Present Contractions: Denies/Absent Rupture of Membranes: Denies Vaginal Bleeding: None Vaginal Discharge: Present Recent Sexual Intercouse: Denies Abdominal Trauma: Not Applicable Patient Complaints: Other Additional Patient Complaints: Pt states has had this pain "off and on x 8 yrs. Had gallbladder out 11/12/18 and had post op incisional infections Time Provider Notified: 12/18/2018 00:30 Provider Notified: Dr Chahal Initial Plan: EFM,UA,URINE CULTURE,CBC,CMP,AMYLASE,LIPASE, URIC ACID,MRI W/WO CONTRAST OF PELVIS AN D ABDOMEN,IV HYDRATION Maternal Assessment Level of Consciousness: Fully Conscious Headache: Denies Nausea/Vomiting: Denies RUQ Epigastric Pain: Denies Pain Assessment Pain Scale: 10 Pain Presence: Constant Pain Type: Sharp; Stabbing; Pressure Pain Location: Abdomen; Back
--- NOTE | 2019-03-25 15:21 | PN ---
Triage Information Date/Time late entry for service rendered on 03/24/19 near M/N Reason for visit: back pain after sexual relation within 24hrs Weeks of Gestation 35w3d /Para A2 Diabetes: none Hypertention: none Additional information mostly rt inguinal pain better on lying on left mor positional Objective Intake and Output 03/24/19 03/24/19 03/25/19 1515:00 23:00 07:00 IntakeIntake Total 100 ml BalanceBalance 100 ml Heart Rate: 130's Contractions: None Results/Medications Result Diagram: 03/24/19 2327 Results 24 hrs Laboratory Tests Test 03/24/19 23:27 White Blood Count 7.4 # Red Blood Count 3.44 L Hemoglobin 9.9 L Hematocrit 30.1 L Mean Corpuscular Volume 87.5 Mean Corpuscular Hemoglobin 28.8 L Mean Corpuscular Hemoglobin Concent 32.9 Red Cell Distribution Width 13.0 Platelet Count 256 Mean Platelet Volume 9.8 Immature Granulocytes % 0.400 Neutrophils % 65.1 Lymphocytes % 23.8 Monocytes % 5.2 Eosinophils % 5.2 Basophils % 0.3 Nucleated Red Blood Cells % 0.0 Immature Granulocytes # 0.030 Neutrophils # 4.8 Lymphocytes # 1.8 Monocytes # 0.4 Eosinophils # 0.4 Basophils # 0.0 Nucleated Red Blood Cells # 0.0 Imaging Results BPP 8/8 HA[place] 16.3 CVL 3.7 Disposition: Discharge Assessment/Plan A IUP 35w3d back pain with rt inguinal pain much alleviated P discharge home RTH prn with routine labor instructions ZENAIDA LEE MD Mar 25, 2019 15:21
== END 2019-03-25 03:20 | disposition home or self-care (01) ==
LOC: OBT 21:24 → L-D 21:29 → OBT 03-25 03:20
PROVIDERS: ATTEND Obstetrics & Gynecology
DX: O26.893 Other specified pregnancy related conditions, third trimester (principal); M54.9 Dorsalgia, unspecified; R10.9 Unspecified abdominal pain; Z3A.35 35 weeks gestation of pregnancy
CPT/HCPCS: 76815; 76817; 76818; 85025; J0131; Z7500; G0463